=== PATIENT | female | born 1950 ===

== ENCOUNTER 2022-07-08 05:45 | Inpatient (IN) ==
[~2022-07-08 05:45] MED LIST: Naloxone 0.4 mg VIAL 0.4 mg/ml 1 ml VIAL IV PRN; Ondansetron 4 mg VIAL 2 MG/ML 2 ml VIAL IV PRN; fentaNYL 100 mcg/2 ml 50 MCG/ML VIAL IV PRN; oxyCODONE/Acetamin 5/325 mg TAB PO PRN
[2022-07-08] MEDS ORDERED: Lactated Ringers 1000 ml BAG 1,000 ML IV SCH ×2 (06:00→11:00)
[2022-07-08] MEDS ORDERED: Buffered Lidocaine 1% SYRIN 1 ml INTRADERM ONE (06:00)
[2022-07-08] MEDS ORDERED: ceFAZolin 2 GM PREMIX 2 GM/50 ML BAG ONE (06:11)
[2022-07-08] MEDS ORDERED: ROPIVACAINE 5 MG/ML 30 ML BTL (0.5%) ONE (06:42)
[2022-07-08] MEDS ORDERED: Midazolam 2 mg/2 ml VIAL 1 mg/ml 2 ml VIAL (2 mg) ONE ×3 (06:48→10:06)
[2022-07-08] MEDS ORDERED: fentaNYL 250 mcg/5 ml 50 MCG/ML 5 ml VIAL (250 MCG) ONE (06:48)
[2022-07-08] MEDS ORDERED: Dexmedetomidine 200 mcg/2 ml 2 ml VIAL (200 mcg) ONE (06:48)
[2022-07-08] MEDS ORDERED: Vancomycin 1,000 MG VIAL ONE (07:02)
[2022-07-08] MEDS ORDERED: Ondansetron 4 mg VIAL 2 MG/ML 2 ml VIAL IV PRN (10:49)
[2022-07-08] MEDS ORDERED: Ondansetron ODT 4 mg TAB 4 MG TAB PO PRN (10:49)
[2022-07-08] MEDS ORDERED: Lactulose 30 ml UDC PO PRN (10:49)
[2022-07-08] MEDS ORDERED: Magnesium Hydroxide LIQ 30 ML UDC PO PRN (10:49)
[2022-07-08] MEDS ORDERED: Albuterol HFA INHALER 8 gm MDI INH PRN (10:54)
[2022-07-08] MEDS ORDERED: Albuterol 2.5mg/3 ml (0.083%) NEB.SOLN INH PRN (10:54)
[2022-07-08] MEDS ORDERED: ceFAZolin 1 GM ADVAN 1 GM in NS 0.9% 50 ML 50 ML IVPB SCH (11:00)
[2022-07-08] MEDS ORDERED: Estradiol VAGINAL TAB (NF) 10 MCG VAG.TAB VAGINAL SCH (11:00)
[2022-07-08] MEDS ORDERED: oxyCODONE/Acetamin 5/325 mg TAB ONE (13:01)
[2022-07-08] MEDS: Morphine 2 MG/ML SYRINGE IV PRN (16:10)
[2022-07-08] MEDS: ceFAZolin 1 GM ADVAN 1 GM in NS 0.9% 50 ML 50 ML IVPB SCH (16:12)
[2022-07-09 05:39] LABS: Hematocrit 38 % (35-47); Hemoglobin 12.4 g/dL (12.0-16.0); Mean Platelet Volume 8.3 fL (7.4-10.4); Platelet Count 220 10^3/uL (150-450)
[2022-07-09 07:09] LABS: Calcium 8.7 mg/dL (8.6-10.3); Potassium 4.9 mmol/L (3.5-5.0); eGFR CKD-EPI 61.3 (>60)
[2022-07-09] MEDS: Magnesium Hydroxide LIQ 30 ML UDC PO SCH ×3 (07:19→20:41)
[2022-07-09] MEDS: ceFAZolin 1 GM ADVAN 1 GM in NS 0.9% 50 ML 50 ML IVPB SCH ×2 (07:20→07:52)
[2022-07-09] MEDS: CMCS: FLUTICAS/UMECLI/VILANT 100-62.5-25 MDI (NF) INH SCH (07:28)
[2022-07-09] MEDS: Morphine 2 MG/ML SYRINGE IV PRN (07:47)
[2022-07-09] MEDS: CMCS: LoraTADine 10 mg TAB (NF) PO SCH (10:32)
[2022-07-09] MEDS: Fluticasone NASAL SPRAY 50MCG 16 gm SPRAY BTL BOTH NARES PRN (10:32)
[2022-07-09] MEDS: Cholecalciferol (VIT D3) 1,000 unit TAB PO SCH (10:34)
[2022-07-09] MEDS: Vitamin THERAPEUTIC TAB PO SCH (10:36)
[2022-07-09] MEDS: VITAMIN B12 5000 MCG SL SCH (10:41)
[2022-07-10 06:08] LABS: Hematocrit 38 % (35-47); Hemoglobin 12.2 g/dL (12.0-16.0); Mean Platelet Volume 8.7 fL (7.4-10.4); Platelet Count 159 10^3/uL (150-450)
[2022-07-10 06:16] LABS: Calcium 8.7 mg/dL (8.6-10.3); Magnesium 2.4 mg/dL (1.9-2.7); Potassium 4.6 mmol/L (3.5-5.0); eGFR CKD-EPI 64.5 (>60)
[2022-07-10] MEDS: CMCS: FLUTICAS/UMECLI/VILANT 100-62.5-25 MDI (NF) INH SCH (07:01)
[2022-07-10 07:44] VITALS: BP 134/71
[2022-07-10] MEDS: VITAMIN B12 5000 MCG SL SCH (08:26)
[2022-07-10] MEDS: Magnesium Hydroxide LIQ 30 ML UDC PO SCH (09:02)
[2022-07-10] MEDS: Fluticasone NASAL SPRAY 50MCG 16 gm SPRAY BTL BOTH NARES PRN (09:02)
[2022-07-10] MEDS: CMCS: LoraTADine 10 mg TAB (NF) PO SCH (09:03)
[2022-07-10] MEDS: Vitamin THERAPEUTIC TAB PO SCH (09:03)
[2022-07-10] MEDS: Cholecalciferol (VIT D3) 1,000 unit TAB PO SCH (09:03)
== END 2022-07-10 12:19 | disposition home or self-care (01) | DRG 470 ==
LOC: AA 05:45 → SSU 13:42
PROVIDERS: ADMIT Orthopaedic Surgery; ATTEND Orthopaedic Surgery